=== PATIENT | female | born 1950 | race Two or more races ===

== ENCOUNTER 2019-06-18 14:26 | Outpatient (RCR) | payer MEDICARE, MEDICAID | END 2019-07-11 | disposition home or self-care (01) | LOC: WCC 14:26 | DX: C88.8 Other malignant immunoproliferative diseases (principal); S71.101S Unspecified open wound, right thigh, sequela; B35.6 Tinea cruris; X58.XXXS Exposure to other specified factors, sequela; Z86.73 Personal history of transient ischemic attack (TIA), and cerebral infarction without residual deficits; Z85.43 Personal history of malignant neoplasm of ovary; Z79.01 Long term (current) use of anticoagulants | CPT/HCPCS: 11043; G0463 ==